=== PATIENT | male | born 1935 | race Caucasian/White ===

== ENCOUNTER 2018-01-24 07:20 | Outpatient (CLI) | payer OTHER | END 2018-01-24 07:26 | disposition home or self-care (01) | LOC: TOM 07:20 | DX: K56.50 Intestinal adhesions [bands], unspecified as to partial versus complete obstruction (principal); C19 Malignant neoplasm of rectosigmoid junction; K92.1 Melena; K56.609 Unspecified intestinal obstruction, unspecified as to partial versus complete obstruction ==

== ENCOUNTER 2019-02-05 06:38 | Outpatient (CLI) | payer OTHER | END 2019-02-05 16:38 | disposition home or self-care (01) | LOC: LAB 06:38 | DX: C18.0 Malignant neoplasm of cecum (principal); D51.1 Vitamin B12 deficiency anemia due to selective vitamin B12 malabsorption with proteinuria; D63.1 Anemia in chronic kidney disease; Z85.038 Personal history of other malignant neoplasm of large intestine; N18.3 Chronic kidney disease, stage 3 (moderate); D51.0 Vitamin B12 deficiency anemia due to intrinsic factor deficiency; I48.2 Chronic atrial fibrillation; D50.0 Iron deficiency anemia secondary to blood loss (chronic); R19.5 Other fecal abnormalities; D69.6 Thrombocytopenia, unspecified; D50.8 Other iron deficiency anemias; D51.8 Other vitamin B12 deficiency anemias; R97.0 Elevated carcinoembryonic antigen [CEA]; K90.89 Other intestinal malabsorption ==

== ENCOUNTER 2020-01-01 16:51 | Inpatient (IN) | payer OTHER ==
[~2020-01-01] VITALS: Ht 172.7 cm; Wt 69.9 kg
[2020-01-01] MEDS ORDERED: XARELTO15 MG (17:16)
[2020-01-01] MEDS ORDERED: COZAAR100 MG (17:16)
[2020-01-01] MEDS ORDERED: SYNTHROID100 MCG (17:16)
[2020-01-01] MEDS ORDERED: ZYRTEC10 M3 (17:17)
[2020-01-01] MEDS ORDERED: PROSCAR5 MG (17:18)
[2020-01-01] MEDS ORDERED: SEPTRA (17:20)
--- NOTE | 2020-01-01 17:21 | NUR ---
SE RECIBE PTE ALERTA Y ORIENTADO X3,REFERIDO POR EL CARDILOGO EL DR.HECTOR LOVE ,REFIERE QUE EL PTE TIENE LA CREATININA EN 3.5,LABORATORIOS ALTERADOS,EL FAMILIAR REFIERE QUE EL PTE ESTA DESHIDRATADO.
--- NOTE | 2020-01-01 18:54 | NUR ---
SE ORIENTA PTE SOBRE TX MEDICO EL CUAL REFIERE ENTENDER.SE LE EXTRAEN MUESTRAS BAJO MEDIDAS ASEPTICAS,SE CANALIZA Y SE COLOCA FLUIDOS DE MANTENIMIENTO.
[2020-01-02] MEDS ORDERED: BACTRIM DS TAB1 EACH (15:47)
== END 2020-01-06 10:39 | disposition home or self-care (01) | DRG 683 ==
LOC: ER 16:51 → MEDJ 21:49
PROVIDERS: ADMIT Internal Medicine
PROC: BT4JZZZ Ultrasonography of Kidneys and Bladder (ICD-10-PCS; principal; 2020-01-01)
PROC: B246ZZZ Ultrasonography of Right and Left Heart (ICD-10-PCS; 2020-01-02)
PROC: 0T9B70Z Drainage of Bladder with Drainage Device, Via Natural or Artificial Opening (ICD-10-PCS; 2020-01-02)
DX: N17.8 Other acute kidney failure (principal); N13.8 Other obstructive and reflux uropathy; I50.22 Chronic systolic (congestive) heart failure; I13.0 Hypertensive heart and chronic kidney disease with heart failure and stage 1 through stage 4 chronic kidney disease, or unspecified chronic kidney disease; D62 Acute posthemorrhagic anemia; N40.1 Benign prostatic hyperplasia with lower urinary tract symptoms; N18.3 Chronic kidney disease, stage 3 (moderate); E86.0 Dehydration; E87.8 Other disorders of electrolyte and fluid balance, not elsewhere classified; R31.0 Gross hematuria; E87.5 Hyperkalemia; D63.1 Anemia in chronic kidney disease; R33.8 Other retention of urine; I48.0 Paroxysmal atrial fibrillation; Z79.01 Long term (current) use of anticoagulants; Z85.038 Personal history of other malignant neoplasm of large intestine; Z08 Encounter for follow-up examination after completed treatment for malignant neoplasm

== ENCOUNTER 2020-02-25 10:41 | Outpatient (CLI) | payer OTHER ==
[~2020-02-25 10:41] MED LIST: BACTRIM DS TAB1 EACH; COZAAR100 MG; PROSCAR5 MG; SEPTRA; SYNTHROID100 MCG; XARELTO15 MG; ZYRTEC10 M3
[2020-02-28] MEDS ORDERED: ELIQUIS2.5 MG PO (10:42)
[2020-02-28] MEDS ORDERED: LASIX PO (10:42)
[2020-02-28] MEDS ORDERED: SYNTHROID125 MCG PO (10:42)
[2020-02-28] MEDS ORDERED: TAMS0.4C PO (10:43)
[2020-02-28] MEDS ORDERED: FINASTERIDE5 MG PO (10:44)
[2020-02-28] MEDS ORDERED: IROPLEX PO (10:45)
[2020-02-28] MEDS ORDERED: VITAMIN B IM ×2 (10:46→10:51)
[2020-02-28] MEDS ORDERED: VITAMIN B12 IM (10:48)
[2020-02-28] MEDS ORDERED: GORDON'S VITE A75 GM PO (10:48)
== END 2020-02-25 11:07 | disposition home or self-care (01) ==
LOC: LAB 10:41
DX: R33.8 Other retention of urine (principal); B96.89 Other specified bacterial agents as the cause of diseases classified elsewhere; I51.7 Cardiomegaly

== ENCOUNTER 2020-03-04 05:35 | Day surgery (SDC) | payer OTHER ==
[~2020-03-04 05:35] MED LIST changes: +ELIQUIS2.5 MG PO; +FINASTERIDE5 MG PO; +GORDON'S VITE A75 GM PO; +IROPLEX PO; +LASIX PO; +SYNTHROID125 MCG PO; +TAMS0.4C PO; +VITAMIN B IM; +VITAMIN B12 IM
[2020-03-04] MEDS ORDERED: LASIX20 MG PO (11:24)
[2020-03-04] MEDS ORDERED: IRO-PLEX LIQUI120 ML PO (11:27)
[2020-03-04] MEDS ORDERED: VITAMIN B-121000 MCG PO (11:29)
== END 2020-03-05 08:00 | disposition home or self-care (01) ==
LOC: CIR.AMB 05:35 → SURH 10:11 → CIR.AMB 10:11 → O/R 10:11 → SURH 13:57 → O/R 13:57 → CIR.AMB 03-05 08:00 → SURH 03-05 14:19
PROVIDERS: ATTEND Urology
DX: N40.1 Benign prostatic hyperplasia with lower urinary tract symptoms (principal); R33.8 Other retention of urine; D62 Acute posthemorrhagic anemia; I48.20 Chronic atrial fibrillation, unspecified; Z79.01 Long term (current) use of anticoagulants; Z85.038 Personal history of other malignant neoplasm of large intestine

== ENCOUNTER 2020-03-09 08:58 | Outpatient (CLI) | payer OTHER ==
[~2020-03-09 08:58] MED LIST changes: +IRO-PLEX LIQUI120 ML PO; +LASIX20 MG PO; +VITAMIN B-121000 MCG PO
== END 2020-03-09 09:02 | disposition home or self-care (01) ==
LOC: LAB 08:58
DX: D62 Acute posthemorrhagic anemia (principal)